=== PATIENT | male | born 1970 | race Caucasian/White ===

== ENCOUNTER → 2019-09-03 | Outpatient (CLI) | payer BC ==
--- NOTE | 2019-09-03 11:36 | Diagnostic Imaging Report ---
EXAM: US ABDOMEN COMPLETE DATE: 09/03/2019 11:00 AM INDICATION: Abdominal pain COMPARISON: None FINDINGS: The visualized pancreas appears unremarkable. The liver is normal in size measuring 14.0 cm in length. Hepatic echogenicity is within normal limits. No focal hepatic abnormalities are identified. The main portal vein is patent with antegrade flow and diameter of 0.8 cm, within normal limits. The gallbladder is unremarkable. There is no evidence for cholelithiasis, gallbladder wall thickening, or pericholecystic fluid. There is no intra or extrahepatic biliary ductal dilatation. The common bile duct measures 2 mm. Sonographic Miller's sign is negative. The spleen is normal in size measuring 10.8 cm in length and demonstrates an unremarkable sonographic appearance. The kidneys are normal in size measuring 9.1 cm in length on the right and 11.9 cm in length on the left. Cortical thickness and echogenicity are within normal limits. There is no evidence for solid renal mass, hydronephrosis, or shadowing 25. The visualized portions of the aorta and IVC are within normal limits. There is no ascites visualized. IMPRESSION: Unremarkable abdominal ultrasound examination. Signed by: Dr. Karson Bradford MD on 09/03/2019 11:32 AM
== END ==
LOC: US 10:50
PROVIDERS: ATTEND Family Medicine
DX: R10.9 Unspecified abdominal pain (principal)
CPT/HCPCS: 76700